=== PATIENT | male | born 1995 | race Caucasian/White ===

== ENCOUNTER 2017-12-07 22:03 | Emergency (ER) | payer SELFPAY ==
[~2017-12-07] VITALS: Ht 167.6 cm; Wt 63.6 kg
[2017-12-08 00:06] VITALS: BP 128/77
[2017-12-08] MEDS ORDERED: BACITRACIN 0.9 GM PACKET OINTMENT TP ONE (00:30)
[2017-12-08] MEDS ORDERED: BUPIVACAINE HCL/PF 0.25% 10 ML VIAL INJ ONE (00:30)
== END 2017-12-08 01:28 | disposition home or self-care (01) ==
LOC: EMS 22:04
DX: S61.411A Laceration without foreign body of right hand, initial encounter (principal); W26.0XXA Contact with knife, initial encounter; Y93.89 Activity, other specified; Y92.098 Other place in other non-institutional residence as the place of occurrence of the external cause; Y99.8 Other external cause status
CPT/HCPCS: 12001; 99283; J3490

== ENCOUNTER 2024-07-08 13:28 | Emergency (ER) | payer OTHER ==
[~2024-07-08] VITALS: Ht 170.2 cm; Wt 63.6 kg
[2024-07-08 13:32] VITALS: TEMP 97.9
[2024-07-08 14:30] VITALS: BP 129/64; PULSE 87; RESP 17; O2SAT 98
[2024-07-08] MEDS: HYDROCODONE/ACETAMINOPHEN 5-325 MG TABLET PO ONE (14:42)
[2024-07-08] MEDS: LIDOCAINE 1%/EPI 1:200,000/PF 10 ML VIAL IARTIC ONE (14:42)
[2024-07-08] MEDS: BUPIVACAINE HCL/PF 0.25% 10 ML VIAL IARTIC ONE (14:42)
[2024-07-08] MEDS ORDERED: TRAM50TA5 PO (15:15)
== END 2024-07-08 16:01 | disposition home or self-care (01) ==
LOC: EMS 13:28
DX: S76.112A Strain of left quadriceps muscle, fascia and tendon, initial encounter (principal); X58.XXXA Exposure to other specified factors, initial encounter; Y93.02 Activity, running; Y92.89 Other specified places as the place of occurrence of the external cause; Y99.8 Other external cause status
CPT/HCPCS: 99283; 29505; 73562; J3490 ×2